=== PATIENT | male | born 2000 | race Caucasian/White ===

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

== ENCOUNTER 2021-04-06 00:33 | Emergency (ER) | payer MEDICAID ==
[~2021-04-06] VITALS: Ht 175.3 cm; Wt 85.7 kg
[2021-04-06 00:45] VITALS: BP_SYST 141
--- NOTE | 2021-04-06 00:48 | NUR ---
Patient to ER bed 7 to gown for evaluation. Side rails up. Report given to Reshma MEDEROS.
--- NOTE | 2021-04-06 00:50 | NUR ---
Pt presents to ed with c/o abd pain and diarrhea x1 days after eating In N out last night. Pt states he has not been able to eat today and abd pain is worse this evening. Abd soft, non distended. Cap refill <3, no distress noted.
--- NOTE | 2021-04-06 01:12 | NUR ---
ER Dr. Redd at bedside examining patient.
[2021-04-06] MEDS ORDERED: ONDANSETRON 4 MG ODT TAB PO ONE (01:15)
[2021-04-06] MEDS ORDERED: MAG HYDROX/AL HYDROX/SIMETH 30 ML, DICYCLOMINE HCL 20 MG, LIDOCAINE VISCOUS 2% 15ML (PO... PO ONE ×3 (01:15)
--- NOTE | 2021-04-06 01:35 | NUR ---
MIKAYLA Laws held. Per pt he took Zofran at home x1 hr ago.
[2021-04-06] MEDS ORDERED: METOCLOPRAMIDE HCL 10 MG/2 ML VIAL IM ONE (01:45)
--- NOTE | 2021-04-06 01:57 | NUR ---
IM Reglan given per md order.
--- NOTE | 2021-04-06 01:58 | NUR ---
PO medications given per md order.
[2021-04-06] MEDS ORDERED: ONDA-8 TL (02:08)
[2021-04-06] MEDS ORDERED: IMO2 PO (02:08)
[2021-04-06] MEDS ORDERED: DICY10CA13 PO (02:09)
[2021-04-06 02:26] VITALS: BP_SYST 141
--- NOTE | 2021-04-06 02:27 | NUR ---
Patient given written and verbal discharge instructions and verbalizes understanding. ER MD discussed with patient the results and treatment provided. Patient in stable condition. ID arm band removed. IV catheter removed intact and dressing applied, no active bleeding. Rx of Dicyclomine, Loperamide, Ondansetron given. Patient educated on pain management and to follow up with PMD. Pain Scale. Opportunity for questions provided and answered. Medication side effect fact sheet provided.
== END 2021-04-06 02:27 | disposition home or self-care (01) ==
LOC: SED 00:33
DX: R10.9 Unspecified abdominal pain (principal); R19.7 Diarrhea, unspecified; R11.2 Nausea with vomiting, unspecified
CPT/HCPCS: 96372; 99283; J2001; J2765; Q0162

== ENCOUNTER 2021-10-24 00:13 | Emergency (ER) | payer MEDICAID ==
[~2021-10-24] VITALS: Ht 170.2 cm; Wt 90.7 kg
[~2021-10-24 00:13] MED LIST: DICY10CA13 PO; IMO2 PO; ONDA-8 TL
[2021-10-24 00:22] VITALS: BP_SYST 138
--- NOTE | 2021-10-24 00:22 | NUR ---
Patient to ER bed 5 to gown for evaluation. Side rails up. Report given to MJ MEDEROS(BRANDT).
--- NOTE | 2021-10-24 00:32 | NUR ---
ER at bedside examining patient.
--- NOTE | 2021-10-24 00:36 | NUR ---
PT COMES IN WITH C/O FLU LIKE SYMPTOMS X 2 DAYS, DENIES FEVERS, FULLY VACCINATED. DENIES SOB OR CP. NO ONE ELSE SICK AT HOME. PT WELL APPEARING, IN NAD. RESP EVEN AND UNALBORED, ON RA @99%.. SKIN W/D/I.
[2021-10-24] MEDS ORDERED: BENZ100C92 PO (00:38)
--- NOTE | 2021-10-24 00:46 | NUR ---
Patient given written and verbal discharge instructions and verbalizes understanding. ER MD discussed with patient the results and treatment provided. Patient in stable condition. ID arm band removed. Rx of BENZONATATE, given. Patient educated on pain management and to follow up with PMD. Pain Scale . Opportunity for questions provided and answered. Medication side effect fact sheet provided.
[2021-10-24 00:50] VITALS: BP_SYST 138
== END 2021-10-24 00:50 | disposition home or self-care (01) ==
LOC: SED 00:13
DX: J06.9 Acute upper respiratory infection, unspecified (principal); Z79.899 Other long term (current) drug therapy
CPT/HCPCS: 99283